=== PATIENT | female | born 1975 | race Caucasian/White ===

== ENCOUNTER 2017-01-30 08:42 | Emergency (ER) | payer BC ==
[2017-01-30 08:55] VITALS: TEMP 98.3; BMI 49.9
--- NOTE | 2017-01-30 08:56 | PDOC ---
History of Present Illness - General Chief Complaint: Respiratory Stated Complaint: SHORT OF BREATH COUGH Time Seen by Provider: 01/30/17 08:49 History Source: Patient, Old Records Exam Limitations: No Limitations - History of Present Illness Initial Comments: 01/30/17 08:51 41-year-old female with history of polycystic ovary syndrome presents to the emergency Department with complaints of cough and shortness of breath 1 month. The patient states that she is been to an urgent care center twice now in the past 4 weeks and was found to be wheezing during her last urgent care visit which was one week ago. The patient completed a course of antibiotics (Zithrmox ) and a steroid taper yesterday and has been using an albuterol inhaler quite frequently. This morning she became concerned because she had a coughing fit followed by some difficulty breathing, left-sided chest tightness as well as palpitations. She is no prior cardiac history, no family history of cardiac disease, is not a tobacco user. She denies history of blood clots, estrogen use , oral contraceptive use, long travel history. She denies fevers, chills. Her cough is nonproductive. The shortness of breath occurs mostly after coughing fits. She does not feel SOB at the moment. Past History - Past Medical History Allergies/Adverse Reactions: Allergies Allergy/AdvReac Type Severity Reaction Status Date / Time No Known Allergies Allergy Verified 01/30/17 08:43 Home Medications: Ambulatory Orders Albuterol Sulfate [Proair Respiclick] 90 mcg IH PRN PRN 01/30/17 Anemia: No Asthma: No Cancer: No Cardiac Disorders: No CVA: No COPD: No CHF: No Dementia: No Diabetes: No GI Disorders: No Disorders: No HTN: No Hypercholesterolemia: No Liver Disease: No Seizures: No Thyroid Disease: No - Surgical History Abdominal Surgery: No Appendectomy: No Cardiac Surgery: No Cholecystectomy: No Lung Surgery: No Neurologic Surgery: No Orthopedic Surgery: No - Psycho/Social/Smoking Cessation Hx Smoking History: Never smoked Have you smoked in the past 12 months: No Hx Alcohol Use: No Drug/Substance Use Hx: No Substance Use Type: None Hx Substance Use Treatment: No Review of Systems - Review of Systems Able to Perform ROS?: Yes Is the patient limited Yakut proficient: No Constitutional: Yes: See HPI HEENTM: No: Symptoms Reported Respiratory: Yes: See HPI, Cough Cardiac (ROS): Yes: See HPI ABD/GI: No: Symptoms Reported : No: Symptoms Reported Musculoskeletal: No: Symptoms Reported Integumentary: No: Symptoms Reported Neurological: No: Symptoms reported *Physical Exam - Physical Exam Comments: 01/30/17 08:54 GENERAL: Well developed, well nourished obese female. Awake and alert. No acute distress. HEENT: Normocephalic, atraumatic. PERRLA, EOMI. No conjunctival pallor. Sclera are non- icteric. Moist mucous membranes. Oropharynx is clear. NECK: Supple. Full ROM. No JVD. No lymphadenopathy. CARDIOVASCULAR: Regular rate and rhythm. No murmurs, rubs, or gallops. Distal pulses are 2+ and symmetric. PULMONARY: No evidence of respiratory distress. Lungs clear to auscultation bilaterally. No wheezing, rales or rhonchi. ABDOMINAL: Soft. Non-tender. Non-distended. No rebound or guarding. No organomegaly. Normoactive bowel sounds. MUSCULOSKELETAL Normal range of motion at all joints. No bony deformities or tenderness. No CVA tenderness. EXTREMITIES: No cyanosis. No clubbing. There is +1 bipedal edema. No calf tenderness. SKIN: Warm and dry. Normal capillary refill. No rashes. No jaundice. NEUROLOGICAL: Alert, awake, appropriate. Cranial nerves 2-12 intact. Grossly non-focal exam. PSYCHIATRIC: Cooperative. Good eye contact. Appropriate mood and affect. ED Treatment Course - LABORATORY CBC & Chemistry Diagram: 01/30/17 09:00 01/30/17 09:00 - RADIOLOGY Radiology Studies Ordered: Category Date Time Status CHEST PA & LAT [RAD] Stat Radiology 01/30/17 08:50 Ordered Medical Decision Making - Medical Decision Making 01/30/17 08:55 41-year-old female with history of PC OS presents to the emergency department with one month history of cough and shortness of breath unrelieved with an albuterol inhaler. She is saturating 99% on room air and is not tachycardic. Differential diagnosis includes but is not limited to: URI, influenza, reactive airway disease, PE, atypical presentation of ACS, CHF (unlikely). Plan: 1. Labs including d-dimer 2. Chest x-ray 3. Influenza PCR 4. Observe and reevaluate 01/30/17 13:55 Addendum: The labs were reviewed and are noted in the electronic medical record. Serologic studies were within normal limits except for the d-dimer which was elevated. CT scan of the chest with contrast was performed to rule out pulmonary embolism and it was negative. The patient is feeling improved. I have discussed all of the results of the studies with the patient and have informed her that she needs to follow-up with her primary care physician within the next 1-3 days and to return to the emergency department if her symptoms persist, worsen, or new symptoms arise. *DC/Admit/Observation/Transfer Diagnosis at time of Disposition: Shortness of breath - Discharge Dispostion Disposition: HOME Condition at time of disposition: Stable Admit: No - Patient Instructions Printed Discharge Instructions: DI for Chronic Bronchitis Additional Instructions: He may take an [id number] cough suppressant. Please follow-up with your primary care physician within the next 1-3 days or return to the emergency department if your symptoms persist, worsen, or new symptoms arise.
[2017-01-30 09:06] LABS: URINE APPEARANCE Clear; URINE BILIRUBIN Negative (NEGATIVE); URINE GLUCOSE (UA) Negative (NEGATIVE); URINE KETONE Negative (NEGATIVE); URINE LEUK ESTERASE Negative (NEGATIVE); URINE NITRITE Negative (NEGATIVE); URINE PROTEIN Negative (NEGATIVE); URINE UROBILINOGEN 0.2 E.U/dl (0.2-1.0)
[2017-01-30 09:13] LABS: URINE BLOOD 1 (NEGATIVE); URINE COLOR YELLOW
[2017-01-30 09:26] LABS: BASOPHIL 1.7 % (0-2.0); EOSINOPHIL 1.7 % (0-4.5); MCH 27.4 pg (25.7-33.7); MCHC 32.7 g/dl (32.0-36.0); MEAN CELL VOLUME 83.8 fl (80-96); MEAN PLT VOLUME 8.3 fl (7.5-11.1); NEUTROPHILS 61.3 % (42.8-82.8); PLATELET COUNT 346 K/MM3 (134-434); RDW 14.2 % (11.6-15.6); WHITE BLOOD COUNT 9.8 K/mm3 (4.0-10.8)
[2017-01-30 09:34] LABS: URINE BACTERIA FEW /hpf (NEGATIVE)
[2017-01-30 09:35] LABS: ANION GAP 8 (8-16); CALCIUM 8.9 mg/dl (8.4-10.2); CO2 27 mmol/L (22-28); CREATININE 0.9 mg/dl (0.6-1.3); GLUCOSE,RANDOM 110 mg/dl (74-106)
[2017-01-30 09:38] LABS: CPK(DFH) 118 IU/L (26-140)
[2017-01-30 10:03] LABS: TROPONIN I (DFP) < 0.03 ng/ml (0.03-0.50)
--- NOTE | 2017-01-30 11:22 | EKG ---
Test Reason : Blood Pressure : / mmHG Vent. Rate : 073 BPM Atrial Rate : 073 BPM P-R Int : 156 ms QRS Dur : 096 ms QT Int : 396 ms P-R-T Axes : 024 023 026 degrees QTc Int : 436 ms NORMAL SINUS RHYTHM NORMAL ECG NO PREVIOUS ECGS AVAILABLE Confirmed by JOSÉ MIGUEL COLBERT MD ([id number] on 01/30/2017 11:21:38 AM Referred By: MD HARRIS Confirmed By:JOSÉ MIGUEL COLBERT MD
[2017-01-30] MEDS ORDERED: SODIUM CHLORIDE 1,000 ML IV STA (13:25)
[2017-01-30 13:33] VITALS: BP 113/69; PULSE 80
== END 2017-01-30 14:09 | disposition home or self-care (01) ==
LOC: FER 08:42
PROC: 3E0337Z Introduction of Electrolytic and Water Balance Substance into Peripheral Vein, Percutaneous Approach (ICD-10-PCS; principal; 2017-01-30)
DX: R06.02 Shortness of breath (principal); E28.2 Polycystic ovarian syndrome
CPT/HCPCS: 36415; 71020-TC; 71275-TC; 80048; 81003; 81015; 82550; 83880; 84484; 84703; 85025; 85379; 87804; 93005; 99283-25

== ENCOUNTER 2023-06-27 07:32 | Day surgery (SDC) | payer BC ==
[2023-06-23 13:37] VITALS: BMI 49.9
[2023-06-27] MEDS ORDERED: PROPOFOL 20 ML ONE (08:02)
[2023-06-27 09:21] VITALS: RESP 18; TEMP 97.7
[2023-06-27 10:16] VITALS: BP 110/65; PULSE 80
== END 2023-06-27 10:05 | disposition home or self-care (01) ==
LOC: FASU-ENDO 07:32
PROVIDERS: ATTEND Internal Medicine Gastroenterology
PROC: 0DBC8ZX Excision of Ileocecal Valve, Via Natural or Artificial Opening Endoscopic, Diagnostic (ICD-10-PCS; 2023-06-27)
PROC: 0DBK8ZX Excision of Ascending Colon, Via Natural or Artificial Opening Endoscopic, Diagnostic (ICD-10-PCS; principal; 2023-06-27 08:56)
DX: Z12.11 Encounter for screening for malignant neoplasm of colon (principal); K63.5 Polyp of colon; K64.1 Second degree hemorrhoids; K64.8 Other hemorrhoids
CPT/HCPCS: 81025; 88305-TC